=== PATIENT | male | born 1980 | race Caucasian/White ===

== ENCOUNTER 2016-06-28 23:57 | Emergency (ER) | payer SELFPAY ==
[2016-06-29 00:34] LABS: HEMATOCRIT 38.5 % (42.0-54.0); HEMOGLOBIN 13.5 g/dL (13.5-17.5); LYMPHOCYTES 19.3 % (15-50); MCH 34.4 pg (26.0-34.0); MCHC 35.1 g/dL (31.0-37.0); MCV 98.2 fL (80.0-100.0); MEAN PLATELET VOLUME 9.3 fL (7.4-10.4); NEUTROPHILS 74.2 % (40-80); PLATELET COUNT 145 10x3/uL (130-400); RBC 3.92 10x6/uL (4.20-6.10); RDW 12.6 % (11.5-14.5); WBC 5.6 10x3/uL (4.8-10.8)
== END 2016-06-29 01:09 | disposition home or self-care (01) ==
LOC: D.ER 23:57
PROVIDERS: Emergency Medicine
DX: K42.9 Umbilical hernia without obstruction or gangrene (principal); F17.200 Nicotine dependence, unspecified, uncomplicated

== ENCOUNTER 2018-02-13 10:02 | Emergency (ER) | payer MEDICAID ==
[~2018-02-13] VITALS: Ht 172.7 cm; Wt 68.2 kg
[2018-02-13 10:08] VITALS: Ht 172.7 cm; Wt 68.2 kg
[2018-02-13 10:18] LABS: BASOPHILS 0.5 % (0-2); EOSINOPHILS 2.7 % (0-7); HEMATOCRIT 42.4 % (42.0-54.0); HEMOGLOBIN 15.2 g/dL (13.5-17.5); LYMPHOCYTES 36.3 % (15-50); MCH 32.8 pg (26.0-34.0); MCHC 35.8 g/dL (31.0-37.0); MCV 91.6 fL (80.0-100.0); MEAN PLATELET VOLUME 9.5 fL (7.4-10.4); MONOCYTES 12.2 % (2-11); NEUTROPHILS 48.3 % (40-80); RBC 4.63 10x6/uL (4.20-6.10); WBC 5.9 10x3/uL (4.8-10.8)
[2018-02-13 10:24] LABS: PLATELET COUNT 205 10x3/uL (130-400)
[2018-02-13 10:34] LABS: ALBUMIN 3.5 g/dL (3.4-5.0); ALKALINE PHOSPHATASE 118 U/L (46-116); ALT (SGPT) 52 U/L (10-68); BILIRUBIN - TOTAL 0.39 mg/dL (0.2-1.3); CALC OSMOLALITY 280 mosm/kg (275-300); CALCIUM 9.4 mg/dL (8.5-10.1); CARBON DIOXIDE 33.2 mmol/L (21.0-32.0); CHLORIDE - SERUM 102 mmol/L (98-107); GLUCOSE 99 mg/dL (74-106); POTASSIUM - SERUM 3.7 mmol/L (3.5-5.1); PROTEIN - SERUM 7.6 g/dL (6.4-8.2); SODIUM 142 mmol/L (136-145); UREA NITROGEN 6 mg/dL (7-18); eGFR NON AFRICAN AMERICAN 88 mL/min (90-120)
[2018-02-13 10:55] LABS: CKMB 0.7 U/L (0.0-3.6); CREATINE KINASE 2561 UL (21-232); PRO BNP 11 pg/mL (0-125); TROPONIN-I < 0.017 ng/mL (0.000-0.060)
[2018-02-13 10:58] LABS: MAGNESIUM - SERUM 1.9 mg/dL (1.8-2.4)
[2018-02-13 12:24] LABS: APPEARANCE CLEAR (CLEAR); BILIRUBIN NEGATIVE (NEGATIVE); COLOR YELLOW (YELLOW); GLUCOSE NEGATIVE (NEGATIVE); KETONE NEGATIVE (NEGATIVE); NITRITE NEGATIVE (NEGATIVE); PROTEIN NEGATIVE (NEGATIVE); SPECIFIC GRAVITY 1.015 (1.005-1.020); UROBILINOGEN NORMAL (NORMAL)
[2018-02-13 12:26] LABS: BACTERIA NONE SEEN /hpf (NONE SEEN); EPITHELIAL CELLS 0-5 /hpf (0-5); MUCUS <1+ /lpf (NONE SEEN); RED CELLS - URINE NONE SEEN /hpf (0-5); WHITE CELLS - URINE 0-5 /hpf (0-5)
[2018-02-13 12:28] LABS: UDS - AMPHET NEGATIVE QUAL (NEGATIVE); UDS - BARB NEGATIVE QUAL (NEGATIVE); UDS - BENZO NEGATIVE QUAL (NEGATIVE); UDS - COCAINE NEGATIVE QUAL (NEGATIVE); UDS - OPIATE POSITIVE QUAL (NEGATIVE); UDS - PCP NEGATIVE QUAL (NEGATIVE); UDS - THC NEGATIVE QUAL (NEGATIVE)
[2018-02-13] MEDS ORDERED: CARAFATE1 G PO (13:31)
[2018-02-13] MEDS ORDERED: PROTONIX40 MG PO (13:31)
[2018-02-13 13:42] VITALS: BP 162/95
== END 2018-02-13 13:43 | disposition home or self-care (01) ==
LOC: D.ER 10:02
PROVIDERS: Emergency Medicine
DX: R07.9 Chest pain, unspecified (principal); R10.9 Unspecified abdominal pain; F17.200 Nicotine dependence, unspecified, uncomplicated

== ENCOUNTER 2018-02-24 06:20 | Emergency (ER) | payer MEDICAID ==
[~2018-02-24] VITALS: Ht 172.7 cm; Wt 71.4 kg
--- NOTE | ~2018-02-24 | CN ---
PATIENT NAME:DARÍO LIGHT MEDICAL RECORD: [id number] : 76 LOCATION:.ER ADMIT DATE: ACCOUNT: [id number] CONSULTING PHYSICIAN: DEZ PRUITT MD REFERRING PHYSICIAN: HERMAN JOHNSNO MD DATE OF CONSULTATION: 02/24/2018 CARDIOLOGY CONSULTATION DATE OF SERVICE: 02/24/2018 ADMITTING DIAGNOSES: 1. Chest pain. 2. Gastroesophageal reflux disease. HISTORY OF PRESENT ILLNESS: Mr. Light presented last week with chest pain, felt to be GERD. He was given pantoprazole as well as Carafate. He stopped these secondary to a rash he developed under his arm. This is possibly shingles and unrelated. Either way, his chest pain came back last night when he was lying down. It does sounds like GERD and not cardiac. He has a normal EKG, normal troponin. PHYSICAL EXAMINATION: GENERAL APPEARANCE: Well-nourished, well-developed, appears stated age. Level of distress, comfortable. PSYCHIATRIC: Mental status, alert, normal affect. Orientation, oriented to time, place and person. EYES: Lids and conjunctiva, noninjected. No discharge, no pallor. ENT: Lips, teeth, gums, normal dentition. Oropharynx, no cyanosis, no pallor. NECK: Carotid arteries, bilateral normal upstroke, no bruits, no thrills. JUGULAR VEINS: No jugular venous pressure or distention. CERVICAL LYMPH NODES: Nontender, nonenlarged. THYROID: Not enlarged. Nontender. No nodules. LUNGS: Respiratory effort, unlabored. CHEST: Normal curvature. No thoracic deformity. No chest wall tenderness. Percussion, resonant. Auscultation, clear. No wheezes, no rales, no rhonchi. CARDIOVASCULAR: Precordial exam, nondisplaced. No heaves or pericardial thrills. Rate and rhythm, regular. Heart sounds, normal S1, normal S2. No S3, no gallop, no rub. Systolic murmur, not heard. Diastolic murmur, not heard. EXTREMITIES: No cyanosis, no edema. Peripheral pulses, full and equal in all extremities, except as noted. No bruits appreciated. ABDOMEN: Soft, nondistended. Normal aorta. No bruit. Nontender. No masses. Liver, nontender, no hepatomegaly. Spleen, nontender, no splenomegaly. MUSCULOSKELETAL: No joint tenderness. No joint swelling. No erythema. NEUROLOGICAL: Normal gait, normal strength, normal tone. SKIN: Warm and dry. OVERALL IMPRESSION: Chest pain, most likely gastroesophageal reflux disease in relation to him stopping his medications. At this time, I did not fill cardiac workup is necessary. Change the medications from the standpoint of gastroesophageal reflux disease and continue to treat gastroesophageal reflux disease. 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
[~2018-02-24 06:20] MED LIST: CARAFATE1 G PO; PROTONIX40 MG PO
[2018-02-24 06:27] VITALS: Ht 172.7 cm; Wt 71.4 kg
[2018-02-24 07:51] LABS: BASOPHILS 0.2 % (0-2); EOSINOPHILS 0.5 % (0-7); HEMATOCRIT 41.7 % (42.0-54.0); HEMOGLOBIN 14.8 g/dL (13.5-17.5); IMMATURE GRANULOCYTES 0.1 % (0-5); LYMPHOCYTES 7.4 % (15-50); MCH 32.7 pg (26.0-34.0); MCHC 35.5 g/dL (31.0-37.0); MCV 92.3 fL (80.0-100.0); MEAN PLATELET VOLUME 8.9 fL (7.4-10.4); MONOCYTES 11.4 % (2-11); NEUTROPHILS 80.4 % (40-80); PLATELET COUNT 234 10x3/uL (130-400); RBC 4.52 10x6/uL (4.20-6.10); RDW 13.3 % (11.5-14.5); WBC 9.4 10x3/uL (4.8-10.8)
[2018-02-24 08:14] LABS: INR 0.95 (0.85-1.17); PROTIME 12.3 SECONDS (11.6-15.0)
[2018-02-24 08:15] LABS: ALBUMIN 3.7 g/dL (3.4-5.0); ALKALINE PHOSPHATASE 95 U/L (46-116); ALT (SGPT) 43 U/L (10-68); BILIRUBIN - TOTAL 0.65 mg/dL (0.2-1.3); CALC OSMOLALITY 273 mosm/kg (275-300); CALCIUM 9.1 mg/dL (8.5-10.1); CHLORIDE - SERUM 99 mmol/L (98-107); CREATININE - SERUM 0.9 mg/dL (0.6-1.3); GLUCOSE 111 mg/dL (74-106); POTASSIUM - SERUM 3.8 mmol/L (3.5-5.1); PROTEIN - SERUM 7.7 g/dL (6.4-8.2); SODIUM 138 mmol/L (136-145); UREA NITROGEN 5 mg/dL (7-18); eGFR NON AFRICAN AMERICAN > 90 mL/min (90-120)
[2018-02-24 08:26] LABS: AMYLASE - SERUM 75 U/L (25-115); CREATINE KINASE 184 UL (21-232); LIPASE 188 U/L (73-393); MAGNESIUM - SERUM 1.5 mg/dL (1.8-2.4); TROPONIN-I < 0.017 ng/mL (0.000-0.060)
[2018-02-24] MEDS ORDERED: ZANTAC300 MG PO (11:46)
[2018-02-24 11:56] VITALS: BP 141/96
== END 2018-02-24 11:56 | disposition home or self-care (01) ==
LOC: D.ER 06:20
PROVIDERS: Family Medicine
DX: R10.9 Unspecified abdominal pain (principal); K21.9 Gastro-esophageal reflux disease without esophagitis; R07.9 Chest pain, unspecified; K29.70 Gastritis, unspecified, without bleeding; R11.2 Nausea with vomiting, unspecified; F17.200 Nicotine dependence, unspecified, uncomplicated

== ENCOUNTER 2019-11-25 22:06 | Emergency (ER) | payer MEDICAID ==
[~2019-11-25] VITALS: Ht 172.7 cm; Wt 70.5 kg
[~2019-11-25 22:06] MED LIST changes: +ZANTAC300 MG PO
[2019-11-25 22:35] VITALS: Ht 172.7 cm; Wt 70.5 kg
[2019-11-26] MEDS ORDERED: ARTHROTEC EC 71 EACH PO (00:19)
[2019-11-26 00:41] VITALS: BP 135/82
== END 2019-11-26 00:41 | disposition home or self-care (01) ==
LOC: D.ER 22:06
DX: M25.552 Pain in left hip (principal)

== ENCOUNTER 2019-12-18 11:40 | Emergency (ER) | payer MEDICAID ==
[~2019-12-18] VITALS: Ht 172.7 cm; Wt 66.8 kg
[~2019-12-18 11:40] MED LIST changes: +ARTHROTEC EC 71 EACH PO
[2019-12-18 11:52] VITALS: Ht 172.7 cm; Wt 66.8 kg
[2019-12-18 12:47] LABS: BASOPHILS 0.5 % (0-2); EOSINOPHILS 1.4 % (0-7); IMMATURE GRANULOCYTES 0.3 % (0-5); LYMPHOCYTES 11.7 % (15-50); MCH 32.2 pg (26.0-34.0); MCHC 34.1 g/dL (31.0-37.0); MCV 94.4 fL (80.0-100.0); MEAN PLATELET VOLUME 9.2 fL (7.4-10.4); MONOCYTES 6.9 % (2-11); NEUTROPHILS 79.2 % (40-80); PLATELET COUNT 194 10x3/uL (130-400); RBC 4.66 10x6/uL (4.20-6.10); RDW 13.8 % (11.5-14.5); WBC 6.4 10x3/uL (4.8-10.8)
[2019-12-18 12:52] LABS: CALC OSMOLALITY 273 mosm/kg (275-300); CALCIUM 8.9 mg/dL (8.5-10.1); CARBON DIOXIDE 29.9 mmol/L (21.0-32.0); CHLORIDE - SERUM 100 mmol/L (98-107); CREATININE - SERUM 0.8 mg/dL (0.6-1.3); GLUCOSE 94 mg/dL (74-106); POTASSIUM - SERUM 3.6 mmol/L (3.5-5.1); SODIUM 138 mmol/L (136-145); UREA NITROGEN 7 mg/dL (7-18); eGFR NON AFRICAN AMERICAN > 90 mL/min (90-120)
[2019-12-18 12:56] LABS: ALBUMIN 3.5 g/dL (3.4-5.0); ALKALINE PHOSPHATASE 151 U/L (30-120); ALT (SGPT) 39 U/L (10-68); BILIRUBIN - TOTAL 0.44 mg/dL (0.2-1.3); MAGNESIUM - SERUM 1.5 mg/dL (1.8-2.4); PROTEIN - SERUM 7.4 g/dL (6.4-8.2)
[2019-12-18 13:30] LABS: APTT 31.3 SECONDS (22.8-39.4); INR 0.88 (0.85-1.17); PROTIME 11.9 SECONDS (11.6-15.0)
[2019-12-18] MEDS ORDERED: LIBRIUM25 MG PO (13:39)
[2019-12-18 14:39] VITALS: BP 136/89
== END 2019-12-18 14:43 | disposition home or self-care (01) ==
LOC: D.ER 11:40
PROVIDERS: Family Medicine
DX: F10.239 Alcohol dependence with withdrawal, unspecified (principal); K21.9 Gastro-esophageal reflux disease without esophagitis; Y90.1 Blood alcohol level of 20-39 mg/100 ml; R05 Cough; R68.83 Chills (without fever)

== ENCOUNTER 2020-02-09 22:43 | Emergency (ER) | payer MEDICAID ==
[~2020-02-09] VITALS: Ht 172.7 cm; Wt 68.0 kg
[~2020-02-09 22:43] MED LIST changes: +LIBRIUM25 MG PO
[2020-02-09 22:49] VITALS: Ht 172.7 cm; Wt 68.0 kg
[2020-02-09] MEDS ORDERED: KEFLEX500 MG PO (23:38)
[2020-02-09 23:58] VITALS: BP 124/75
== END 2020-02-09 23:58 | disposition home or self-care (01) ==
LOC: D.ER 22:43
DX: S61.411A Laceration without foreign body of right hand, initial encounter (principal); K21.9 Gastro-esophageal reflux disease without esophagitis; W25.XXXA Contact with sharp glass, initial encounter; Y93.9 Activity, unspecified; Y92.9 Unspecified place or not applicable

== ENCOUNTER 2020-09-04 11:09 | Emergency (ER) | payer BC ==
[~2020-09-04] VITALS: Ht 172.7 cm; Wt 68.2 kg
[~2020-09-04 11:09] MED LIST changes: +KEFLEX500 MG PO
[2020-09-04 11:16] VITALS: Ht 172.7 cm; Wt 68.2 kg
[2020-09-04 12:15] LABS: CALC OSMOLALITY 273 mosm/kg (275-300); CALCIUM 9.6 mg/dL (8.5-10.1); CARBON DIOXIDE 24.5 mmol/L (21.0-32.0); CHLORIDE - SERUM 100 mmol/L (98-107); CREATININE - SERUM 0.7 mg/dL (0.6-1.3); GLUCOSE 103 mg/dL (74-106); POTASSIUM - SERUM 3.6 mmol/L (3.5-5.1); SODIUM 138 mmol/L (136-145); UREA NITROGEN 8 mg/dL (7-18); eGFR NON AFRICAN AMERICAN > 90 mL/min (90-120)
[2020-09-04 12:24] LABS: ALBUMIN 3.8 g/dL (3.4-5.0); ALKALINE PHOSPHATASE 126 U/L (30-120); ALT (SGPT) 26 U/L (10-68); AMYLASE - SERUM 91 U/L (25-115); BILIRUBIN - TOTAL 0.32 mg/dL (0.2-1.3); LIPASE 126 U/L (73-393); PROTEIN - SERUM 7.9 g/dL (6.4-8.2); TROPONIN-I < 0.017 ng/mL (0.000-0.060)
[2020-09-04 12:29] LABS: BASOPHILS 0.5 % (0-2); EOSINOPHILS 1.3 % (0-7); HEMATOCRIT 41.8 % (42.0-54.0); HEMOGLOBIN 14.7 g/dL (13.5-17.5); IMMATURE GRANULOCYTES 0.3 % (0-5); LYMPHOCYTE ABS# 1.41 10x3/uL (1.32-3.57); LYMPHOCYTES 17.7 % (15-50); MCH 32.7 pg (26.0-34.0); MCHC 35.2 g/dL (31.0-37.0); MCV 93.1 fL (80.0-100.0); MEAN PLATELET VOLUME 9.9 fL (7.4-10.4); MONOCYTES 9.1 % (2-11); NEUTROPHIL ABS# 5.68 10x3/uL (1.78-5.38); NEUTROPHILS 71.1 % (40-80); PLATELET COUNT 218 10x3/uL (130-400); RBC 4.49 10x6/uL (4.20-6.10); RDW 13.7 % (11.5-14.5)
[2020-09-04 13:12] LABS: UDS - AMPHET NEGATIVE QUAL (NEGATIVE); UDS - BARB NEGATIVE QUAL (NEGATIVE); UDS - BENZO NEGATIVE QUAL (NEGATIVE); UDS - COCAINE NEGATIVE QUAL (NEGATIVE); UDS - OPIATE NEGATIVE QUAL (NEGATIVE); UDS - PCP NEGATIVE QUAL (NEGATIVE); UDS - THC NEGATIVE QUAL (NEGATIVE)
[2020-09-04 13:13] LABS: BILIRUBIN NEGATIVE (NEGATIVE); KETONE SMALL mg/dL (NEGATIVE); NITRITE NEGATIVE (NEGATIVE); UROBILINOGEN NORMAL mg/dL (< 2)
[2020-09-04 13:15] LABS: BACTERIA FEW HPF (NONE SEEN); SQUAMOUS EPITHELIAL 0-5 HPF (0-4); WHITE CELLS - URINE RARE HPF (0-1)
[2020-09-04 13:55] VITALS: BP 110/83
[2020-09-04] MEDS ORDERED: VISTARIL50 MG PO (14:51)
[2020-09-04] MEDS ORDERED: BENTYL 20 MG TA20 MG PO (14:51)
== END 2020-09-04 15:08 | disposition home or self-care (01) ==
LOC: D.ER 11:09
PROVIDERS: Family Medicine
DX: R10.33 Periumbilical pain (principal); F41.9 Anxiety disorder, unspecified

== ENCOUNTER 2020-11-08 20:29 | Emergency (ER) | payer SELFPAY ==
[~2020-11-08] VITALS: Ht 172.7 cm; Wt 71.8 kg
[~2020-11-08 20:29] MED LIST changes: +BENTYL 20 MG TA20 MG PO; +VISTARIL50 MG PO
[2020-11-08 20:45] VITALS: Ht 172.7 cm; Wt 71.8 kg
[2020-11-08 21:35] LABS: BASOPHILS 0.5 % (0-2); EOSINOPHILS 1.5 % (0-7); HEMATOCRIT 42.9 % (42.0-54.0); HEMOGLOBIN 14.5 g/dL (13.5-17.5); LYMPHOCYTES 42.4 % (15-50); MCHC 33.9 g/dL (31.0-37.0); MCV 97.5 fL (80.0-100.0); MEAN PLATELET VOLUME 6.8 fL (7.4-10.4); MONOCYTES 9.2 % (2-11); NEUTROPHILS 46.4 % (40-80); RBC 4.41 10x6/uL (4.20-6.10); RDW 13.9 % (11.5-14.5); WBC 7.9 10x3/uL (4.8-10.8)
[2020-11-08 21:36] LABS: PLATELET COUNT 330 10x3/uL (130-400)
[2020-11-08 21:37] LABS: BILIRUBIN NEGATIVE (NEGATIVE); KETONE NEGATIVE mg/dL (< 1+); NITRITE NEGATIVE (NEGATIVE); UROBILINOGEN NORMAL mg/dL (< 2); WHITE CELLS - URINE <1 HPF (0-1)
[2020-11-08 21:39] LABS: CALC OSMOLALITY 287 mosm/kg (275-300); CALCIUM 8.9 mg/dL (8.5-10.1); CARBON DIOXIDE 26.3 mmol/L (21.0-32.0); CHLORIDE - SERUM 106 mmol/L (98-107); CREATININE - SERUM 0.8 mg/dL (0.6-1.3); GLUCOSE 95 mg/dL (74-106); POTASSIUM - SERUM 3.8 mmol/L (3.5-5.1); SODIUM 145 mmol/L (136-145); UREA NITROGEN 9 mg/dL (7-18); eGFR NON AFRICAN AMERICAN > 90 mL/min (90-120)
[2020-11-08 21:46] LABS: ALBUMIN 4.1 g/dL (3.4-5.0); ALKALINE PHOSPHATASE 98 U/L (30-120); ALT (SGPT) 34 U/L (10-68); MAGNESIUM - SERUM 2.3 mg/dL (1.8-2.4); PROTEIN - SERUM 7.9 g/dL (6.4-8.2)
[2020-11-08 21:55] LABS: UDS - AMPHET NEGATIVE QUAL (NEGATIVE); UDS - BARB NEGATIVE QUAL (NEGATIVE); UDS - BENZO NEGATIVE QUAL (NEGATIVE); UDS - COCAINE NEGATIVE QUAL (NEGATIVE); UDS - OPIATE NEGATIVE QUAL (NEGATIVE); UDS - PCP NEGATIVE QUAL (NEGATIVE); UDS - THC NEGATIVE QUAL (NEGATIVE)
[2020-11-09 02:37] VITALS: BP 127/70
== END 2020-11-09 02:37 | disposition home or self-care (01) ==
LOC: D.ER 20:29
PROVIDERS: Emergency Medicine
DX: R44.0 Auditory hallucinations (principal); F10.129 Alcohol abuse with intoxication, unspecified; Y90.8 Blood alcohol level of 240 mg/100 ml or more; K21.9 Gastro-esophageal reflux disease without esophagitis